=== PATIENT | female | born 1970 | race African-American/Black ===

== ENCOUNTER 2018-07-07 01:07 | Inpatient (IN) | payer MEDICARE ==
[2018-07-07] VITALS (8 sets, daily range): BP systolic 133–213; BP diastolic 68–116
[~2018-07-07] VITALS: Ht 167.6 cm; Wt 98.4 kg
--- NOTE | ~2018-07-07 | CON ---
[address] [address] CONSULTATION Name: SOCO BARBOUR PINKY Room: [address] IN M.R.#: [id number] Admission: 07/07/18 Attend Phys: Kamari Sullivan Discharge: Date of : 70 Report #: [id number] THIS REPORT FOR: //name// CC: JAMIL physician/PCP Cheo Salgado DATE OF SERVICE: 07/07/2018 REQUESTING PHYSICIAN: Cheo Salgado DO REASON FOR CONSULTATION: Complaints of chest pain, shortness of breath. HISTORY OF PRESENT ILLNESS: The patient is a 48-year-old end-stage renal disease patient who had previously refused dialysis, had been treated at other hospitalizations, presents with chest pain and shortness of breath. She has been having off and on chest pain for the last several days. Apparently, she was in another institution in this region within the last 48-72 hours, but we have not received records. She has chest pain at rest, it is nonradiating. It is associated with nausea, shortness of breath and diaphoresis. She is short of breath with activity. She has been swelling. She was evaluated with an EKG in the Emergency Room, which was unremarkable and her first cardiac troponin level was 0.06. We have requested records from local institutions. Her chest x-ray revealed findings of congestive heart failure. PAST MEDICAL HISTORY: She has a history of end-stage renal disease, apparently she had refused dialysis. She has a history of congestive heart failure, insulin requiring diabetes and numerous social issues. She has chronic anemia, hemoglobin is in the 7's, depression. HOME MEDICATIONS: Insulin only. FAMILY HISTORY: She has no family history of heart disease. PHYSICAL EXAMINATION: VITAL SIGNS: Blood pressure is 172/89, pulse is 64, O2 sat is 96% on 2 liters. GENERAL: This is a middle-aged -J[place] female. She is a poor historian. She is answering simple questions yes and no, but otherwise is not able to give a really [place] [address] CONSULTATION Name: SOCO BARBOUR Room: [address] IN ..#: [id number] Admission: 07/07/18 Attend Phys: Kamari Sullivan Discharge: Date of : 70 Report #: [id number] GENERAL: She is in no apparent distress though. HEENT: There is no evidence of trauma or facial asymmetry. NECK: Supple. There is minimal jugular venous distention. CARDIOVASCULAR: Regular. I cannot hear a murmur or rub. LUNGS: Diminished breath sounds. ABDOMEN: Nontender, nondistended. EXTREMITIES: There is a 1-2+ pretibial edema. She has evidence of diabetic skin changes. DIAGNOSTIC DATA: ECG demonstrates a sinus rhythm with poor R-wave, but normal ST segments. There is a wandering baseline. Her hemoglobin 7.2, white blood count is 4.5, platelet count is 247,000. Troponin I is 0.06, hemoglobin 7.2. Chest x-ray reveals cardiomegaly and congestive heart failure. IMPRESSION: 1. Acute diastolic congestive heart failure. 2. Anemia. 3. Chest pain. 4. Diabetes. 5. Acute kidney failure. PLAN: At this point in time, I would treat her with supportive care only for her blood pressure. She at this point in time is not a good candidate for diuretics. I would have Nephrology see her. We did not order any cardiac testing as she reports that she had heart test done at [facility] and and we will try to obtain those records. She is anemic, so I would not give her aspirin until we know the etiology of her anemia. By: 1214 [id number] Taylor MD, FACC /nt
[2018-07-07] MEDS ORDERED: VITAMIN E400 UNIT PO (01:15)
[2018-07-07] MEDS ORDERED: LANTUS100 UNIT/M SUBQ (01:15)
[2018-07-07] MEDS ORDERED: HUMALOG100 UNIT/1 SUBQ (01:15)
[2018-07-07] MEDS ORDERED: NEPHROCAPS SOFT1 CAP PO (01:16)
[2018-07-07 02:29] LABS: ABSOLUTE EOSINOPHILS 0.2 thou/uL (0.0-0.7); ABSOLUTE LYMPHOCYTES 0.6 thou/uL (0.8-5.3); ABSOLUTE MONOCYTES 0.2 thou/uL (0.0-1.2); ABSOLUTE NEUTROPHILS 3.4 thou/uL (1.6-8.1); BASOPHILS 1.1 %; HEMATOCRIT 22.4 % (37.0-47.0); HEMOGLOBIN 7.2 gm/dL (12.0-15.0); LYMPHOCYTES 14.3 %; MCH 28.9 pg (26.0-34.0); MCHC 32.3 g/dL (28.0-37.0); MCV 89.6 fL (80.0-100.0); MONOCYTES 5.2 %; MPV 9.6 fl. (7.2-11.1); NUCLEATED RBCS 0 /100WBC; PLATELET COUNT* 247 thou/uL (150-400); POLYS 75.4 %; RDW-CV 16.9 % (10.5-14.5); WBC 4.5 thou/uL (4.0-11.0)
[2018-07-07 02:45] LABS: CALCIUM 8.3 mg/dL (8.5-10.1); CREATININE 6.4 mg/dL (0.6-1.3); POTASSIUM 4.7 mmol/L (3.5-5.1)
[2018-07-07 02:48] LABS: INR 1.1; PROTIME 11.1 Seconds (9.20-11.50)
[2018-07-07 02:55] LABS: ALBUMIN 2.2 g/dL (3.4-5.0); TOTAL BILIRUBIN 0.3 mg/dL (<0.1-1.0); TROPONIN-I LEVEL 0.06 ng/mL (<0.06)
--- NOTE | 2018-07-07 05:41 | NUR ---
ELECTRON BEAM WELDER SETTER REPORTS THEY WERE UNABLE TO OBTAI BLOOD FOR LABORATORY SPECIMANS. DR BARAHONA NOTIFIED.
--- NOTE | 2018-07-07 06:12 | NUR ---
PER RESPIRATORY THERAPIST PATIENT REFUSED ABG DR BARAHONA IS AT BEDSIDE TALKING WITH PATIENT.
--- NOTE | 2018-07-07 08:41 | NUR ---
RECEIVED REPORT FROM MARIFER AND ASSUMED CARE OF PT @ 2896.PT IS A/O X4 BUT DELUSIONAL.PT REMAINS ON 2L O2 NC.ASSESSMENT CHARTED.IV PATENT AND SALINE LOCKED.PT IS CALM BUT UNCOOPERATIVE-REFUSING LABS TO BE DRAWN THIS AM.PT LEFT SLEEPING IN BED WITH CALL LIGHT AND FALL PRECAUTIONS IN PLACE.FAMILY AT BEDSIDE.WILL CONTINUE TO MONITOR.
--- NOTE | 2018-07-07 12:42 | EKG ---
[place] [address] ELECTROCARDIOGRAM REPORT Name: ANGLEHALISOCOJavi VANCE Room: [address] ADM IN [facility].#: [id number] Admission: 07/07/18 Attend Phys: Kamari Sullivan Discharge: Date of : 70 Report #: [id number] THIS REPORT FOR: //name// [facility] ED Test Date: 2018-07-07 Test Time: 01:11:24 Pat Name: SOCO BARBOUR Department: Room: [facility] Gender: F Community Reinvestment Act Officer: : 1970 Requested By: Diandra Kay Order Number: [id number] MD: Trevor Taylor Measurements Intervals Glendo Rate: 80 P: 23 CA: 138 QRS: 23 QRSD: 85 T: 141 QT: 418 QTc: 483 Interpretive Statements Sinus rhythm Low voltage, extremity leads Borderline repolarization abnormality Baseline wander in lead(s) V2,V4 No previous ECG available for comparison Electronically Signed On 07-07-2018 12:42:17 FRUIT CULLER by Trevor Taylor [email or web address] <ELECTRONICALLY SIGNED> By: Trevor Taylor MD, [facility] 07/07/18 1242 0111 0111 Trevor Taylor MD, [facility] /EPI
--- NOTE | 2018-07-07 17:34 | NUR ---
PT BP ELEVATED AT 180S/90S.CARDIAC MONITORING IN PLACE WITH NO CHANGES.PT REMAINS ON 2L O2 NC.PT HAS C/O PAIN IN CHEST-MEDICATIONS GIVEN.NEW HU INSERTED DUE TO RETENTION.HU SECURE AND PATENT.UA COLLECTED.PT INFORMED OF PLAN OF CARE AND COMMUNICATES UNDERSTANDING.HOURLY ROUNDING COMPELTED FOR PT SAFETY.CALL LIGHT AND FALL PRECAUTIONS IN PLACE.WILL CONTINUE TO MONITOR FOR DURATION OF SHIFT.
[2018-07-07 17:58] LABS: URINE BILIRUBIN NEGATIVE (Negative); URINE BLOOD 1+ (Negative); URINE CLARITY CLEAR; URINE COLOR YELLOW; URINE GLUCOSE-RANDOM 3+ (Negative); URINE KETONES NEGATIVE (Negative); URINE LEUKOCYTES-REFLEX NEGATIVE (Negative); URINE NITRITE-REFLEX NEGATIVE (Negative); URINE PROTEIN 3+ (Negative); URINE UROBILINOGEN 0.2 E.U./dl (0.2-1.0)
[2018-07-07 18:06] LABS: AMP/METHAMP Negative (Negative); BARBITURATES Negative (Negative); BENZODIAZEPINES Negative (Negative); COCAINE Negative (Negative); METHADONE Negative (Negative); OPIATES POSITIVE (Negative); PCP Negative (Negative); THC Negative (Negative)
[2018-07-07 18:16] LABS: MUCUS None Seen strn/LPF (None Seen); SQUAMOUS 0-3 Few /LPF (0-3)
[2018-07-07 18:17] LABS: YEAST-REFLEX Present (None Seen)
[2018-07-07 18:18] LABS: AMORPHOUS URATES Moderate /LPF (None Seen); BACTERIA-REFLEX 1-9 Few /HPF (None Seen); URINE RBC 0-2 Rare /HPF (0-2); URINE WBC-REFLEX 0-5 Rare /HPF (0-5)
[2018-07-07 19:55] LABS: % SATURATION 15 % (20-39); IRON 32 ug/dL (50-175)
--- NOTE | 2018-07-07 22:40 | NUR ---
inital assesment completed at 1930. pt confused, alert to sammie and situation. pt reported pain and nausea. pt's blood pressure 213/116. pt given hs meds. blood pressure rechecked at 0. result 133/68. pt's mother at bedside. call light in reach, frequent visual checks done.
--- NOTE | 2018-07-07 23:01 | NUR ---
PT REFUSES TO TURN AND REPOSTION WEIGHT. PT VOCALIZING IN LOUD ANGRY VOICE WHEN ASKED TO REPOSITION.
[2018-07-08] VITALS (7 sets, daily range): BP systolic 133–172; BP diastolic 68–84
--- NOTE | 2018-07-08 04:20 | NUR ---
PT WOKE UP WHILE OBTAINING 4 AM VITAL SIGNS. PT REPORTED BACK PAIN AND NAUSEA. PT GIVEN 4 MG ZOFRAN IV FOLLOWED BY 4 MG MORPHINE IV. PT TALKING IN LOUD VOICE ASKING STAFF WHAT IS GOING ON WITH HER DAUGHTER AND WHERE IS SHE. ATTEMPTS TO ORIENT PT UNSUCCESSFUL.
[2018-07-08 05:20] LABS: ALBUMIN 2.1 g/dL (3.4-5.0); CALCIUM 8.6 mg/dL (8.5-10.1); CREATININE 6.3 mg/dL (0.6-1.3); PHOSPHORUS* 7.2 mg/dL (2.5-4.9); POTASSIUM 4.6 mmol/L (3.5-5.1)
--- NOTE | 2018-07-08 06:36 | NUR ---
PT NOT PROGRESSING TOWARD GOALS. PT CONTINUES TO BE CONFUSED. SINUS RHYTHM ON MONITOR. BLOOD PRESSURE WITHIN NORMAL LIMITS AFTER RECIEVING HS ANTIHYPERTESIVE. NO ACUTE CHANGES, WILL CONTINUE TO MONITOR.
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
--- NOTE | 2018-07-08 17:23 | NUR ---
VSS.CARDIAC MONITORING IN PLACE WITH NO CHANGES.PT REMAINS ON 2L O2 NC.IV PATENT AND SALINE LOCKED.NO C/O PAIN.PT BLOOD GLUCOSE HAS BEEN LOW IN THE 40S AND 50S-PT RECIEVED DEXTROSE IV AND LATER GLUCOSE TABS TO HELP MAINTAIN THE BLOOD GLUCOSE IN THE 80S.TELE PSYCH CONSULT COMPLETED-RECOMMENDATIONS RECIEVED AND PLACED IN CHART.Q2 HOUR REPOSITION COMPLETED.HOURLY ROUNDING COMPLETED FOR PT SAFETY.CALL LIGHT AND FALL PRECAUTIONS IN PLACE.WILL CONTINUE TO MONITOR FOR DURATION OF SHIFT.
[2018-07-09 00:21] VITALS: BP 156/85
[2018-07-09 04:00] VITALS: BP 156/98
--- NOTE | 2018-07-09 04:17 | NUR ---
Pt a/o x 3-4, RA/O2 2L NC. C/o itchiness to bilateral arms and chest pain. Meds given PRN per order. BG within normal range. VSS. No apparent distress noted. Pt resting comfortably in bed at this time. Will continue to monitor.
[2018-07-09 08:00] VITALS: BP 177/103
--- NOTE | 2018-07-09 11:22 | CON ---
[address] [address] CONSULTATION Name: SOCO BARBOUR PINKY Room: [address] IN M.R.#: [id number] Admission: 07/07/18 Attend Phys: Kamari Sullivan Discharge: Date of : 70 Report #: [id number] THIS REPORT FOR: //name// CC: JAMIL physician/PCP Cheo Salgado DATE OF SERVICE: 07/07/2018 CONSULTING PHYSICIAN: Cheo Salgado DO. REASON FOR CONSULTATION: Acute kidney injury. HISTORY OF PRESENT ILLNESS: A 48-year-old female who was recently hospitalized at [facility]. Those records are not available to me. She saw her primary physician 3 days ago for shortness of breath, was told to come to the Emergency Department because of concerns for possible fluid overload and worsening shortness of breath. She had an x-ray done here, which shows some pulmonary edema and had an elevated creatinine of over 6. Apparently at [facility], it was recommended that she undergo dialysis. She declined to do so, was deemed to have decision making capacity and ultimately decided not to pursue dialysis. She is awake, alert, somnolent, but able to answer questions appropriately and tells me that she does not want dialysis. She is having some shortness of breath, but is breathing comfortably right now on nasal cannula. She has no other complaints. She does not recall who her athletic instructor is. REVIEW OF SYSTEMS: Constitutional, psych, heme, eyes, ENT, respiratory, cardiac, GI, , endocrine, all negative except as documented above. PAST MEDICAL HISTORY: Chronic kidney disease, baseline unknown, insulin-dependent diabetes type 1, sickle cell, CHF, hypertension. FAMILY HISTORY: Not pertinent in this 40-year-old female. SOCIAL HISTORY: She is apparently homeless and was living in a hotel. CURRENT MEDICATIONS: Reviewed. PHYSICAL EXAMINATION: VITAL SIGNS: Blood pressure 149/73, pulse 68, respirations 22, temperature 36.3. GENERAL: No acute distress. EYES: Open. EARS: Externally normal. CARDIOVASCULAR: Regular rate. No rub. LUNGS: [place] [address] CONSULTATION Name: SOCO BARBOUR Room: [address] IN [facility]#: [id number] Admission: 07/07/18 Attend Phys: Kamari Sullivan Discharge: Date of : 70 Report #: [id number] ABDOMEN: Soft. MUSCULOSKELETAL: Nontender. PSYCHIATRIC: Awake, alert, but somnolent. LABORATORY DATA: White cell count 4.5, hemoglobin 7.2, platelets 247. Sodium 135, potassium 4.7, chloride 104, bicarbonate 20, BUN 70, creatinine 6.4, glucose 409, calcium 8.3, albumin 2.2. ASSESSMENT: 1. Acute kidney injury with baseline severe chronic kidney disease, details unknown, was recently hospitalized at [facility] and refused dialysis. 2. History of sickle cell. 3. Insulin-dependent diabetes type 1. 4. Congestive heart failure. 5. Hypertension. 6. Anemia. 7. Hypoalbuminemia with an albumin of 2.2. 8. Pulmonary edema on chest x-ray. PLAN: 1. The patient is adamant. At present, she does not wish to have dialysis. We will order IV Lasix to help with pulmonary edema. 2. Would caution the use of morphine in the setting of advanced renal insufficiency. 3. Fluid restrict. 4. Check labs again in the a.m. 5. Request records from [facility]. Thank you for requesting my opinion in the care and management of this patient. <ELECTRONICALLY SIGNED> By: Anel Peraza MD 07/09/18 1122 1152 [id number] Peraza MD /nt
[2018-07-09 11:59] VITALS: BP 197/81
--- NOTE | 2018-07-09 12:59 | 2DMMODE ---
[place] [address] 2 D/M-MODE ECHOCARDIOGRAM Name: ANGLESOCO VANCE Room: [address] ADM IN [facility]#: [id number] Admission: 07/07/18 Attend Phys: Cheo Salgado Discharge: Date of : 70 Date of Service: 07/09/18 1259 Report #: [id number] THIS REPORT FOR: //name// APPROVED REPORT Study performed: 07/09/2018 10:09:00 EXAM: Comprehensive 2D, Doppler, and color-flow Echocardiogram Patient Location: In-Patient Room #: [facility] Status: routine BSA: 2.07 HR: 69 bpm BP: 156/98 mmHg Rhythm: NSR Other Information Study Quality: Good Indications Congestive Heart Failure Elevated Troponin 2D Dimensions IVSd: 9.52 (7-11mm) LVOT Diam: 17.06 (18-24mm) LVDd: 49.77 mm PWd: 11.10 (7-11mm) Ascending Ao: 28.39 (22-36mm) LVDs: 33.00 (25-40mm) Volumes Left Atrial Volume (Systole) LA ESV Index: 26.90 mL/m2 Aortic Valve AoV Peak Barak.: 1.60 m/s AO Peak Gr.: 10.25 mmHg LVOT Max P.04 mmHg AO Mean Gr.: 5.16 mmHg LVOT Mean P.76 mmHg LVOT Max V: 1.01 m/s AO V2 VTI: 32.38 cm LVOT Mean V: 0.60 m/s KISHORE (VTI): 1.69 cm2 LVOT V1 VTI: 23.97 cm Mitral Valve E/A Ratio: 1.42 MV Decel. Time: 182.33 ms MV E Max Barak.: 1.38 m/[place] [address] 2 D/M-MODE ECHOCARDIOGRAM Name: BARBOURSOCO Room: [address] IN .R.#: [id number] Admission: 07/07/18 Attend Phys: Cheo Salgado Discharge: Date of : 70 Date of Service: 07/09/18 1259 Report #: [id number] MV PHT: 52.88 ms MVA (PHT): 4.16 cm2 TDI E/Lateral E': 19.71 E/Medial E': 23.00 Medial E' Barak.: 0.06 m/s Lateral E' Barak.: 0.07 m/s Pulmonary Valve PV Peak Barak.: 0.82 m/s PV Peak Gr.: 2.70 mmHg Tricuspid Valve RAP Estimate: 5.00 mmHg TR Peak Gr.: 33.63 mmHg RVSP: 38.00 mmHg PA Pressure: 38.00 mmHg Left Ventricle The left ventricle is normal size. There is normal LV segmental wall motion. Moderate concentric left ventricular hypertrophy. Left ventricular systolic function is mild to moderately decreased. LVEF is 40-45%. The left ventricular diastolic function is normal. Right Ventricle The right ventricle is normal size. The right ventricular systolic function is normal. Atria The left atrium size is normal. The right atrium size is normal. Aortic Valve Mild aortic valve sclerosis. Trace aortic regurgitation. There is no aortic valvular stenosis. Mitral Valve The mitral valve is normal in structure. Mild mitral regurgitation. No evidence of mitral valve stenosis. Tricuspid Valve The tricuspid valve is normal in structure. Moderate tricuspid regurgitation. Mild pulmonary hypertension. Pulmonic Valve The pulmonary valve is normal in structure. Mild [place] [address] 2 D/M-MODE ECHOCARDIOGRAM Name: SOCO BARBOUR Room: [address] IN [facility]#: [id number] Admission: 07/07/18 Attend Phys: Cheo Salgado Discharge: Date of : 70 Date of Service: 07/09/18 1259 Report #: [id number] Great Vessels The aortic root is normal in size. IVC is normal in size and collapses >50% with inspiration. Pericardium Trace pericardial effusion. Left pleural effusion. <Conclusion> The left ventricle is normal size. Moderate concentric left ventricular hypertrophy. Left ventricular systolic function is mild to moderately decreased. LVEF is 40-45%. The right ventricle is normal size. The left atrium size is normal. Mild aortic valve sclerosis. Trace aortic regurgitation. The mitral valve is normal in structure. Mild mitral regurgitation. The tricuspid valve is normal in structure. Moderate tricuspid regurgitation. Mild pulmonary hypertension. IVC is normal in size and collapses >50% with inspiration. Trace pericardial effusion. There is normal LV segmental wall motion. Left pleural effusion. <ELECTRONICALLY SIGNED> By: Tony Ritchie MD, FACC 07/09/18 1259 1259 1259 Tony Ritchie MD, FACC /INF
--- NOTE | 2018-07-09 14:25 | NUR ---
Nutrition: Consult for "DM." Pt was sound asleep sitting up in bed at time of visit; 14:00. She did stir a little and I asked if she'd like to discuss DM diet. She was very sleepy, but appreciative of the handouts I had for her. Encouraged her to peruse them when she wakes up and call RD with any questions about the diet. RD contact info left for pt as well. She needs dialysis, but is skeptical. No further nutrition education appropriate at this time d/t pt's mental status/sleepiness. Consider mild risk. Please consult RD if further diet education is warranted.
--- NOTE | 2018-07-09 14:57 | NUR ---
PT VERY PARANOID, REFUSED TO TAKE HER BLOOD PRESSURE MEDICATIONS THIS MORNING, STATED SHE NEEDED SOME TIME TO GET HER THOUGHTS TOGETHER, STATED SHE DIDN'T WANT HER MEDS YET, ASKED HER WHEN SHE WANTED THEM SHE SAID IN ONE HOUR, TOLD HER I WOULD RETURN IN ONE HOUR, AN HOUR LATER WENT BACK IN, SHE STATED SHE NEEDED A SECOND TO GET HER THOUGHTS TOGETHER AND TO COME BACK IN 10 MINUTES, RETURNED IN 10 MINUTES AND SHE WAS TALKING TO PHYSICIAN'S SHE STATED SHE WOULD NOT BE TAKING HER MEDICATIONS AT ALL AND THAT SHE WOULD HAVE HER HAIR FOLLICLES TESTED TO MAKE SURE WE WEREN'T SWITCHING HER MEDS UP ON HER. THIS MORNING WHEN GIVING HER HER IV LASIX HER MOTHER ASKED WHAT SHE WAS GETTING, THE PT SAID THEY SAID IT'S LASIX, BUT THEY WON'T TELL YOU IT'S POISON. PT CONSTANTLY PRETENDING TO BE ASLEEP WHEN SHE JUST DOESN'T WANT TO TALK TO ANYONE OR DO SOMETHING. MOTHER AT BEDSIDE, PT CONSTANTLY YELLING AT MOTHER. PT ASKED RN WHY SHE WAS SO ITCHY, EXPLAINED TO PT THAT HER BUN/CREATININE ARE ELEVATED AND WAS PROBABLY CAUSING HER ITCHING, PT SAID THIS WAS A LIE AND THAT RN WAS MAKING IT UP, MOTHER CHIMED IN AND SAID SHE THOUGHT IT WAS THE MUFFIN PT GOT ON HER BREAKFAST TRAY THAT WAS WHAT WAS CAUSING PT TO BE ITCHY, PT SNAPPED AT MOTHER AND TOLD HER IT WAS THE TOXINS IN HER BODY, MOTHER SAID SEVERAL INCOMPREHENSIBLE THINGS AND WALKED AWAY. PT REFUSING TO HAVE LABS DRAWN WELL TAKE MEDICATIONS. TELE PSYCH CONSULT WAS REDONE PER PHYSICIAN REQUEST AND RESULTS CALLED TO DR SAENZ. SW KEPT UP ON SITUATION. WILL CONTINUE TO MONITOR.
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
[2018-07-09 15:47] VITALS: BP 195/97
--- NOTE | 2018-07-09 16:42 | NUR ---
PT WENT ON LONG TANGENT ABOUT HOW SHE THINKS SHE IS NOW ALLERGIC TO LANTUS, THAT IT IS CAUSING HER ITCHING AND IT MUST BE WHAT CAUSED HER RENAL FAILURE AND SHE WANTS TO TALK TO THE COMPANY AND LET THEM KNOW AND WANTS US TO CALL HER PRIMARY CARE PROVIDER AND LET HIM KNOW SHE IS ALLERGIC TO IT, AND WHAT IS SHE GOING TO DO NOW BECAUSE SHE IS ALLERGIC TO LEVEMIR AND LANTUS. AND THEN THE CONVERSATION SUDDENLY TURNED TO HER KIDS AND HOW SHE TOOK THEM TO THE HOSPITAL BECAUSE SHE NOW KNOWS THEIR BLOOD SUGARS WERE GOING UP AND DOWN AND HOW SHE WAS THERE AND TOLD THE NURSE THAT SHE WOULD DO ANYTHING TO MAKE SURE HER CHILDREN SURVIVED AND THAT THE NURSE TOLD HER SHE WAS THREATENING TO KILL HER KIDS BY SAYING THAT AND THEN THEY TOOK THEM AWAY FROM HER. PT STATES THAT HER SON WAS DIAGNOSED WITH DMI BUT THAT HER DAUGHTER NEVER WAS, BUT SHE KNOWS HER DAUGHTER HAS IT EVEN THOUGH THE LAB TESTS NEVER SHOWED IT. THEN SHE MOVED ON TO HOW SHE WANTS TO GET PUT ON THE TRANSPLANT LIST INSTEAD OF DIALYSIS, THAT SHE COULD JUST GET A KIDNEY REAL QUICK AND THEN SHE WON'T NEED DIALYSIS, EXPLAINED TO PT IT DOES NOT HAPPEN THAT QUICKLY, SHE STATES HER GRANDPA NEEDED A NEW HEART AND THEY SAID THE SAME THING TO HIM AND HE LIVED FOR SEVERAL MORE YEARS, EMPHASIZED TO PT THAT SHE WOULD NOT EVEN BE CONSIDERED IF SHE WERE A CANDIDATE IF SHE CONTINUED TO BE NON-COMPLIANT. PT SAYS SHE WOULD CONSIDER DOING DIALYSIS IF SHE COULD GET ON THE DONOR LIST TO BUY HER TIME UNTIL SHE COULD GET A NEW KIDNEY. ASKED PT WHAT IF SHE WERE NOT A CANDIDATE AND DID NOT GET ON THE LIST, SHE SAYS THAT SHE WOULD BE OK WITH DYING WITH DIGNITY WITH NO DIALYSIS.
[2018-07-09 20:00] VITALS: BP 190/99
--- NOTE | 2018-07-09 20:00 | NUR ---
RECEIVED REPORT AND ASSUMED CARE OF PT, ASSESSMENT COMPLETED. PT ABLE TO CARRY ON CONVERSATION BUT WITH FLIGHT OF IDEAS. CONT TO STATE SHE WILL BE TAKING THIS TO HER RETAIL SOLAR ADVISOR-POINTING TO [employer]. ASKING FOR LASIX, PT HAS GENERALIZED 3+ EDEMA. HU IN R/T RETENTION. PT REFUSING TO TURN OR SHIFT HER WEIGHT IN BED. EXPLAINED IMPORTANCE OF THIS BUT STILL REFUSED. PATIENT FINANCIAL REPRESENTATIVE ATTEMPTED TO DRAW BLOOD BUT UNABLE TO DO SO AND PT GOT ANGRY WITH THIS. O2 REMAINS AROUND HER EARS BUT NOT IN HER EARS. RA SAT 94%. TELEMETRY ON SHOWING SR. WILL CONT TO MONITOR AND ASSIST NEEDED.
[2018-07-10] VITALS: BP 185/101
[2018-07-10 04:00] VITALS: BP 201/85
--- NOTE | 2018-07-10 06:13 | NUR ---
AWAKE MOST OF NIGHT. PT NON COMPLIANT. REFUSING TO BE TURNED STATING "IT IS MY RIGHT NOT TO TURN". EDUCATION GIVEN AND INFORMED NEED TO CHECK SKIN AND SMOOTH OUT WRINKLES BUT STILL REFUSED. PT DOES NOT COMPLY WITH FLUID RESTRICTION. ASKING FREQ FOR LASIX. NO SOB NOTED BUT STILL HAS 3+ GENERALIZED EDEMA. REFUSING LAB DRAWS. TELEMETRY CONT TO SHOW SR. HS GOALS OF REST AND COMFORT ACHIEVED. HOURLY ROUNDING OBSERVED.
[2018-07-10 08:00] VITALS: BP 189/90
--- NOTE | 2018-07-10 11:01 | NUR ---
ASSUMED PT CARE AT 0700, PT LYING IN BED, SIDE RAILS UP, CALL LIGHT IN REACH, TOPSTITCHER LOCKSTITCH TRACING SINUS RHYTHM. 2LPM O2 VIA NC, PT REFUSES TO WEAR, DEMANDS TO HAVE IT ON. PT O2 SAT 97%RA. LS DIMINISHED IN ALL LOBES. 3+ PITTING EDEMA TO BLE AND BUE, HYPERTENSIVE, PT REFUSES MEDS AND LABS. PT EDUCATED ON RISKS OF NOT TAKING MEDICATION, CONT TO REFUSE. PT STATES SHE WANTS TO GO HOME AND WILL FOLLOW UP WITH PCP. PT REFUSED TO TURN FOR SKIN ASSESSMENT, REFUSED DISCHARGE PHOTOS OF WOUNDS ON FEET, UNABLE TO ASSESS COCCYX/SACRAL AREA. PT EDUCATED ON IMPORTANCE OF TURNING TO AVOID PRESSURE ULCERS, PT AGAIN REFUSED.
[2018-07-10] MEDS ORDERED: LASIX 40 MG TAB40 M2 PO (11:04)
[2018-07-10] MEDS ORDERED: AMLODIPINE BESYL5 M1 PO (11:04)
[2018-07-10] MEDS ORDERED: ZYPREXA 5 MG TAB5 M1 PO (11:04)
[2018-07-10] MEDS ORDERED: CARVEDILOL12.5 MG PO (11:04)
[2018-07-10] MEDS ORDERED: NEPHROCAPS SOFT1 CAP PO ×2 (11:04→11:46)
[2018-07-10] MEDS ORDERED: KEFLEX500 M1 PO (11:04)
[2018-07-10 13:00] VITALS: BP 134/64
--- NOTE | 2018-07-10 15:07 | NUR ---
RE: CHF medication education. Met with pt to discuss heart failure medications. We reviewed rationale for use and importance of compliance with prescribed regimen. We discussed possible side effects and potential management strategies. Left drug information sheet with patient. Provided pharmacy contact information for any further questions or issues. Thank you.
[2018-07-10 16:00] VITALS: BP 140/71
--- NOTE | 2018-07-10 19:31 | NUR ---
PT REQUESTING TO BE DISCHARGED MULTIPLE TIMES THROUGHOUT SHIFT. STATING " I NEED TO GET OUT OF THIS HOSPITAL NOW, I WILL GO TO MY [facility]IMARY [facility] OFFICE AND HE WILL STRAIGHTEN EVERYTHING OUT FOR ME". PT REFUSES ALL MEDICATIONS AND TREATMENTS THROUGHOUT DAY. DR SAENZ HERE TO SEE PT AND OKAY FOR DISCHARGE. DISCHARGE ORDERS RECEIVED. DISCHARGE INSTRUCTIONS, CARE NOTES, SCRIPTS AND FOLLOW UP APPTS GIVEN TO PT. PT COMMUNICATES UNDERSTANDING OF DISCHARGE TEACHING. PT SIGNED DISCHARGE PAPERWORK. IV AND CRISIS WORKER REMOVED. PT GIVEN COMPLETE BED BATH BY NURSING STAFF. 2 FORMS OF TRANSPORTATION ARRANGED FOR PT. FIRST CAB THAT ARRIVED TO PICK PT UP, PT STATING, " I CANT WALK I NEED THE WHEELCHAIR ACCESSIBLE CAB", PT ASSISTED TO OWN WHEELCHAIR WITH NURSING STAFF. WHEELCHAIR ACCESSIBLE CAB OBTAINED AND WHEN CAB ARRIVED, PT REFUSING TO LEAVE, STATING, " I WILL LEAVE IN THE AM, I CANT LEAVE TONIGHT". PT EDUCATED ON BEING MEDICALLY STABLE DISCHARGED FROM THE HOSPITAL. PT GETTING VERY ANGRY, SPEAKING NEGATIVELY AND AGGRESSIVELY TOWARDS STAFF. SECURITY CALLED AND CAME UP TO UNIT. PT CONTINUES TO INSIST SHE IS NOT LEAVING AND REFUSES TO LEAVE. PT ANGRY, STATING "I WILL NOT LEAVE TONIGHT", ILL THROW MYSELF OUT OF THIS CHAIR AND THEN ILL STAY", PT ATTEMPTED TO MAKE SELF FALL FROM CHAIR, PT LOWERED TO GROUND SLOWLY BY NURSING STAFF. DR DEWEY NOTIFIED. NO NEW ORDERS RECEIVED. PT TO DISCHARGE PER DR DEWEY. PT REFUSES TO GET OFF OF GROUND AND IS YELLING OUT REFUSING TO LEAVE. MOTHER AT BEDSIDE THROUGHOUT ALL OF THIS IN SILENT IN THE CORNER OF THE ROOM. SECURITY CONTACTED [facility] [employer]. POLICE DEPARTMENT SHOWED UP AND EDUCATED PT ON NEEDING TO LEAVE HOSPITAL. AFTER MUTLTIPLE CONVERSATIONS WITH POLICE, PT EDUCATED ON HER OPTIONS TO LEAVE THE HOSPITAL AND ULTIMATELY DECIDED TO TAKE WHEELCHAIR CAB. POLICE LIFTED PT UP TO OWN WHEELCHAIR AND POLICE PLACED GAIT BELT AROUND PT AND WHEELCHAIR TO KEEP PT FROM THROWING SELF ONTO FLOOR. GAIT BELT CHECKED BY NURSING STAFF MULTIPLE TIMES PRIOR TO LEAVING. GAIT BELT NOT RESTRICTING AND SKIN INTACT. PT DISCHARGED VIA OWN WHEELCHAIR WITH SECURITY AND [facility] [employer] TO CAB SERVICE AT FRONT OF HOSPITAL. PT MOTHER AT PATIENTS SIDE WITH ALL BELONGINGS.
--- NOTE | 2018-07-11 08:57 | NUR ---
Pt discharged yesterday, after requesting to leave. CM provided a cab voucher, Pt stated that she wanted the cab to take her to her pharmacy. Cm inquried about the cab taking her to her home address that Pt provided, and Pt was adament that the cab take her to her pharmacy.
== END 2018-07-10 18:40 | disposition home or self-care (01) | DRG 682 ==
LOC: M.ERS 01:07 → M.TBA-ER 05:24 → M.2W 05:24
PROVIDERS: Emergency Medicine; Internal Medicine Nephrology; ADMIT Internal Medicine
DX: N17.9 Acute kidney failure, unspecified (principal); G93.41 Metabolic encephalopathy; I50.33 Acute on chronic diastolic (congestive) heart failure; I13.2 Hypertensive heart and chronic kidney disease with heart failure and with stage 5 chronic kidney disease, or end stage renal disease; E88.09 Other disorders of plasma-protein metabolism, not elsewhere classified; N18.6 End stage renal disease; E10.22 Type 1 diabetes mellitus with diabetic chronic kidney disease; F20.9 Schizophrenia, unspecified; L29.9 Pruritus, unspecified; D63.1 Anemia in chronic kidney disease; F32.9 Major depressive disorder, single episode, unspecified; Z99.2 Dependence on renal dialysis